=== PATIENT | female | born 1975 | race Caucasian/White ===

== ENCOUNTER 2021-07-01 11:39 | Day surgery (SDC) | payer OTHER ==
[~2021-07-01] VITALS: Ht 160 cm; Wt 109.8 kg
[2021-07-01] MEDS ORDERED: CHLORHEXIDINE 15 ML UDC PO ONE (12:30)
[2021-07-01] MEDS ORDERED: LACTATED RINGERS 1,000 ML IV SCH (12:30)
[2021-07-01] MEDS ORDERED: FAMO40TA4 PO (12:40)
[2021-07-01] MEDS ORDERED: ROPI1TAB4 PO (12:40)
[2021-07-01] MEDS ORDERED: RAME8TAB PO (12:40)
[2021-07-01] MEDS ORDERED: ORPH100T PO (12:40)
[2021-07-01] MEDS ORDERED: VITAMIN D (12:40)
[2021-07-01] MEDS ORDERED: BACL-19 PO (12:40)
[2021-07-01] MEDS ORDERED: OMEP20TA62 PO (12:40)
[2021-07-01] MEDS ORDERED: FLUV100T2 PO (12:40)
[2021-07-01] MEDS ORDERED: DICLOFENAC (12:40)
[2021-07-01] MEDS ORDERED: ALOG12.52 PO (12:40)
[2021-07-01] MEDS ORDERED: MAGNESIUM (12:40)
[2021-07-01] MEDS ORDERED: SUMA6PEN2 SC (12:40)
[2021-07-01] MEDS ORDERED: AMAN100T PO (12:40)
[2021-07-01 12:57] VITALS: BP 141/92
[2021-07-01 12:58] LABS: ALANINE AMINOTRANSFERASE 103 U/L (12-78); ALBUMIN 4.2 g/dL (3.4-5.0); ANION GAP 10 mmol/L (5-15); CALCIUM 9.5 mg/dL (8.5-10.1); CHLORIDE 105 mmol/L (98-107); CREATININE 1.09 mg/dL (0.55-1.02)
[2021-07-01 13:00] LABS: ALKALINE PHOSPHATASE 219 U/L (45-117); BILIRUBIN,TOTAL 0.6 mg/dL (0.2-1.0); TOTAL PROTEIN 9.2 g/dL (6.4-8.2)
[2021-07-01] MEDS ORDERED: MIDAZOLAM 1 MG/ML, 2ML ONE (14:09)
[2021-07-01] MEDS ORDERED: FENTANYL PF 100 MCG/2ML ONE (14:09)
[2021-07-01] MEDS ORDERED: DEXAMETHASONE 4 MG/ML, 1ML ONE (14:10)
[2021-07-01] MEDS ORDERED: PROPOFOL 10 MG/ML, 20ML ONE (14:10)
[2021-07-01] MEDS ORDERED: ONDANSETRON 2MG/ML, 2ML ONE (14:10)
[2021-07-01] MEDS ORDERED: CEFAZOLIN 1,000 MG ONE (14:10)
[2021-07-01] MEDS ORDERED: PROMETHAZINE 25 MG/ML, 1ML IVPush PRN (14:30)
[2021-07-01] MEDS ORDERED: MEPERIDINE/PF 25MG/0.5ML IVPush PRN (14:30)
[2021-07-01] MEDS ORDERED: HYDROcodone/APAP 7.5-325MG/15ML UDC PO PRN (14:30)
[2021-07-01] MEDS ORDERED: FENTANYL PF 100 MCG/2ML IV PRN (14:30)
[2021-07-01] MEDS ORDERED: ONDANSETRON 2MG/ML, 2ML IVPush PRN (14:30)
[2021-07-01] MEDS ORDERED: OXYcodone 5 MG/5 ML ORAL.SOL UDC PO PRN (14:30)
[2021-07-01] MEDS ORDERED: HYDROmorphone 1 MG/ML, 1ML INJ IVPush PRN (14:30)
[2021-07-01] MEDS ORDERED: BUPIVACAINE/PF 0.5% ONE (15:06)
[2021-07-01] MEDS ORDERED: LIDOCAINE/PF 1%, 30ML ONE (15:06)
[2021-07-01] MEDS ORDERED: OXYcodone 5 MG/5 ML ORAL.SOL UDC ONE (16:47)
== END 2021-07-01 18:03 | disposition home or self-care (01) ==
LOC: OUT 11:39
PROVIDERS: ATTEND Orthopaedic Surgery
DX: G56.02 Carpal tunnel syndrome, left upper limb (principal); F43.10 Post-traumatic stress disorder, unspecified; E66.01 Morbid (severe) obesity due to excess calories; Z20.822 Contact with and (suspected) exposure to COVID-19; Z79.899 Other long term (current) drug therapy
CPT/HCPCS: 29848; 80053; 82962; 87635; 93005; J0690; J1100; J2250; J2405; J2704; J3010; J7120